=== PATIENT | female | born 2000 | race Caucasian/White ===

== ENCOUNTER 2024-05-23 19:42 | Emergency (ER) | payer BC ==
[~2024-05-23] VITALS: Ht 152.4 cm; Wt 86.2 kg
[2024-05-23] MEDS ORDERED: LORazepam 1 MG TAB PO ONE (20:50)
[2024-05-23] MEDS ORDERED: Ketorolac Tromethamine 60 MG/2 ML VIAL IM ONE (22:00)
== END 2024-05-23 22:08 | disposition home or self-care (01) ==
LOC: ED 19:42
DX: F41.9 Anxiety disorder, unspecified (principal); R51.9 Headache, unspecified; Z79.899 Other long term (current) drug therapy; Z88.8 Allergy status to other drugs, medicaments and biological substances; Z98.890 Other specified postprocedural states